=== PATIENT | female | born 1975 | race Caucasian/White ===

== ENCOUNTER 2020-08-25 19:10 | Emergency (ER) | payer BC, MEDICAID ==
[2020-08-25] MEDS ORDERED: Lactated Ringers 1,000 ML IV ONE (20:03)
[2020-08-25] MEDS ORDERED: Ondansetron 4 MG/2 ML SDV IVPUSH ONE (20:04)
[2020-08-25] MEDS ORDERED: diphenhydrAMINE 50 MG/ML SDV IVPUSH ONE ×2 (20:04→21:40)
--- NOTE | 2020-08-25 20:17 | EDM.PDOC ---
ED HPI GENERAL MEDICAL PROBLEM - General Chief Complaint: General Stated Complaint: VERTIGO Time Seen by Provider: 08/25/20 20:00 Source of Information: Reports: Patient, RN History Limitations: Reports: No Limitations - History of Present Illness INITIAL COMMENTS - FREE TEXT/NARRATIVE: 45 yo female was recently seen at the [facility] in [place] for vertigo and was given Rx's for Zofran and meclizine. She was also referred to PT for the Nylen Barany maneuvers. She had her first PT visit today and says that during her treatment her vertigo was triggered and she never got any relief. She took a Zofran for her nausea on her way home about 2 pm, but nothing since. She has not taken any of her meclizine. Now in the ER if she sits still she has no vertigo, but if she turns her head it gets triggered. She had no conversations today with any of her providers. Did vomit once today. Onset: Sudden Onset Date: 08/23/20 Duration: Day(s):, Intermittent Location: Reports: Head Quality: Reports: Other (pain not reported) Severity: Moderate Improves with: Reports: Rest (maintained head position. ) Worsens with: Reports: Movement (of her head) Context: Reports: Other (See HPI) Associated Symptoms: Reports: Nausea/Vomiting. Denies: Fever/Chills, Headaches, Syncope Treatments FISCAL ECONOMIST: Reports: Other (see below) (none) Neck Pain Score (Numeric/FACES): 7 - Related Data Allergies Allergy/AdvReac Type Severity Reaction Status Date / Time latex Allergy Rash Verified 08/25/20 19:33 Latex, Natural Rubber Allergy Respiratory Verified 08/25/20 19:33 Distress povidone-iodine Allergy Other Verified 08/25/20 19:33 [From Betadine] soap [From Betadine] Allergy Other Verified 08/25/20 19:33 Home Meds: Home Meds Meclizine [Antivert] 25 mg PO Q4H PRN 08/25/20 [History] Metoprolol Tartrate 25 mg PO DAILY 08/25/20 [History] Omeprazole 20 mg PO DAILY 08/25/20 [History] ondansetron HCL [Zofran] 4 mg PO Q6H PRN 08/25/20 [History] Past Medical History Cardiovascular History: Reports: Other (See Below) Other Cardiovascular History: PAC/PVC Gastrointestinal History: Reports: GERD 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: Neurological History: Reports: Vertigo - Infectious Disease History Infectious Disease History: Reports: Chicken Pox, Shingles Social & Family History - Tobacco Use Tobacco Use Status *Q: Former Tobacco User Years of Tobacco use: 25 Packs/Tins Daily: 1 Used Tobacco, but Quit: Yes Month/Year Tobacco Last Used: 01/2018 - Caffeine Use Caffeine Use: Reports: Coffee, Soda - Recreational Drug Use Recreational Drug Use: No ED ROS GENERAL - Review of Systems Review Of Systems: See Below Constitutional: Reports: No Symptoms HEENT: Reports: No Symptoms Respiratory: Reports: No Symptoms Cardiovascular: Reports: No Symptoms GI/Abdominal: Reports: Nausea, Vomiting. Denies: Diarrhea Musculoskeletal: Reports: No Symptoms Skin: Reports: No Symptoms Neurological: Reports: Dizziness ED EXAM, GENERAL - Physical Exam Exam: See Below Exam Limited By: No Limitations General Appearance: Alert, WD/WN, No Apparent Distress Eye Exam: Bilateral Eye: EOMI, Normal Inspection, PERRL Ears: Normal External Exam, Normal Canal, Hearing Grossly Normal, Normal TMs Ear Exam: Bilateral Ear: Auricle Normal, Canal Normal, TM normal Nose: Normal Inspection, No Blood Throat/Mouth: Normal Inspection, Normal Lips, Normal Oropharynx, Normal Voice, No Airway Compromise Head: Atraumatic, Normocephalic Neck: Normal Inspection, Lymphadenopathy (R), Lymphadenopathy (L) Respiratory/Chest: No Respiratory Distress, Lungs Clear, Normal Breath Sounds, No Accessory Muscle Use Cardiovascular: Regular Rate, Rhythm, No Edema GI/Abdominal: Normal Bowel Sounds, Soft, Non-Tender, No Distention Back Exam: Normal Inspection. No: CVA Tenderness (R), CVA Tenderness (L) Extremities: Normal Inspection, Normal Range of Motion, Non-Tender, No Pedal Edema Neurological: Alert, Oriented, CN II-XII Intact, Normal Cognition, No Motor/Sensory Deficits Psychiatric: Normal Affect, Normal Mood Skin Exam: Warm, Dry, Intact, Normal Color, No Rash Course - Vital Signs Last Recorded V/S: Last Vital Signs Temp 35.6 C L 08/25/20 19:27 Pulse 60 08/25/20 20:49 Resp 14 08/25/20 20:49 BP 142/86 H 08/25/20 20:49 Pulse Ox 98 08/25/20 20:49 - Orders/Labs/Meds Meds: Medications Discontinued Medications Generic Name Dose Route Start Last Admin Trade Name Natalia YODER Reason Stop Dose Admin Diphenhydramine HCl 50 mg 08/25/20 20:04 08/25/20 20:41 Benadryl IVPUSH 08/25/20 20:05 50 mg ONETIME ONE Administration Diphenhydramine HCl 25 mg 08/25/20 21:40 08/25/20 21:49 Benadryl IVPUSH 08/25/20 21:41 25 mg ONETIME ONE Administration Lactated Ringer's 1,000 mls @ 1,000 mls/hr 08/25/20 20:03 08/25/20 20:48 Ringers, Lactated IV 08/25/20 21:02 1,000 mls/hr BOLUS ONE Administration Ketorolac Tromethamine 30 mg 08/25/20 21:40 08/25/20 21:49 Toradol IVPUSH 08/25/20 21:41 30 mg ONETIME ONE Administration Ondansetron HCl 4 mg 08/25/20 20:04 08/25/20 20:43 Zofran IVPUSH 08/25/20 20:05 4 mg ONETIME ONE Administration - Radiology Interpretation Free Text/Narrative:: CT head-neg CT Results Date: 08/25/20 CT Results Time: 22:36 - Re-Assessments/Exams Free Text/Narrative Re-Assessment/Exam: 08/25/20 22:38 PHILIPPE better after Toradol, dizziness not completely gone, but is better. Departure - Departure Time of Disposition: 22:45 Disposition: Home, Self-Care 01 Condition: Fair Clinical Impression: BPV (benign positional vertigo) Qualifiers: Laterality: unspecified laterality Qualified Code(s): H81.10 - Benign paroxysmal vertigo, unspecified ear Headache Qualifiers: Headache type: unspecified Headache chronicity pattern: acute headache Intractability: not intractable Qualified Code(s): R51.9 - Headache, unspecified - Discharge Information *PRESCRIPTION DRUG MONITORING PROGRAM REVIEWED*: Not Applicable *COPY OF PRESCRIPTION DRUG MONITORING REPORT IN PATIENT CHRISTOS: Not Applicable Instructions: Benign Positional Vertigo Referrals: PCP,None [Primary Care Provider] - Forms: ED Department Discharge Additional Instructions: Take meclizine 25 mg every 6 hrs through the weekend and then as needed. Use Zofran every 6 hrs as needed for nausea. You may use ibuprofen and/or acetaminophen for pain or fever control. Recheck with your provider next week. Sepsis Event Note (ED) - Evaluation Sepsis Screening Result: No Definite Risk - Focused Exam Vital Signs: Vital Signs Temp Pulse Resp BP Pulse Ox 08/25/20 20:49 60 14 142/86 H 98 08/25/20 19:27 35.6 C L 60 16 148/85 H 95
[2020-08-25] MEDS ORDERED: Ketorolac 30 MG/ML SDV IVPUSH ONE (21:40)
--- NOTE | 2020-08-25 22:24 | CRLCT ---
INDICATION: dizzy, head and neck pain CT HEAD WITHOUT CONTRAST TECHNIQUE: Multiple axial CT images were performed through the head without intravenous contrast administration. COMPARISON: No previous studies are currently available for comparison. FINDINGS: No acute intracranial hemorrhage is identified. No extra-axial collections are evident and there is no mass effect or midline shift. Ventricles are normal in size and configuration. Brain parenchyma appears normal with unremarkable tanner-white differentiation. Osseous structures are within normal limits and no fractures are seen. Included portions of the paranasal sinuses and mastoid air cells are normally aerated. IMPRESSION: Normal non-contrast head CT. TO CAZARES MD [facility] Dictated by: Agapito Cazares MD @ 08/25/2020 22:22:15 (Electronically Signed)
== END 2020-08-25 22:57 | disposition home or self-care (01) ==
LOC: JP.ED 19:10
DX: H81.10 Benign paroxysmal vertigo, unspecified ear (principal); R51.9 Headache, unspecified; K21.9 Gastro-esophageal reflux disease without esophagitis; Z87.891 Personal history of nicotine dependence; Z79.899 Other long term (current) drug therapy; Z91.048 Other nonmedicinal substance allergy status; Z91.040 Latex allergy status
CPT/HCPCS: 70450; 96374; 96375; 96376; 99284; 99284-25; J1200; J1885; J2405; J7120